=== PATIENT | female | born 1935 | race Caucasian/White ===

== ENCOUNTER 2023-05-04 05:11 | Inpatient (IN) | payer MEDICARE, OTHER ==
[~2023-05-04] VITALS: Ht 152.4 cm; Wt 63.2 kg
[2023-05-04 06:16] VITALS: BP 151/83; TEMP 98; O2SAT 98
[2023-05-04] MEDS ORDERED: TRANEXAMIC ACID 3,000 MG in SODIUM CHLORIDE IRRIG SOLUTION 70 ML IR ONE (06:30)
[2023-05-04] MEDS ORDERED: POLYMYXIN B SULFATE 500,000 UNITS ONE (06:33)
[2023-05-04] MEDS ORDERED: BUPIVACAINE 0.5 % PF 150 MG/30 ML VIAL ONE (06:33)
[2023-05-04] MEDS ORDERED: ROPIVACAINE HCL 0.5% 5 MG/ML 30ML VIAL ONE (06:35)
[2023-05-04] MEDS ORDERED: FENTANYL PF 100MCG/2ML AMPUL ONE (06:36)
[2023-05-04] MEDS ORDERED: HYDROMORPHONE INJ 2 MG/ML DISP.SYRIN ONE (06:36)
[2023-05-04] MEDS ORDERED: ROCURONIUM BROMIDE 50 MG/5 ML ONE (06:36)
[2023-05-04] MEDS ORDERED: CLINDAMYCIN IV RTU IN D5W 0 ML ONE (06:40)
[2023-05-04] MEDS ORDERED: CLINDAMYCIN 900 MG/6 ML VIAL ONE (06:50)
[2023-05-04] MEDS ORDERED: CLINDAMYCIN IV RTU IN D5W 50 ML ONE (06:50)
[2023-05-04] MEDS ORDERED: SENNOSIDES 8.6 MG TABLET PO PRN (09:30)
[2023-05-04] MEDS ORDERED: ONDANSETRON HCL/PF 4 MG/2 ML VIAL IV PRN (09:30)
[2023-05-04] MEDS ORDERED: BISACODYL SUPP (10 MG) 10 MG/SUPP.RECT SUPP.RECT RC PRN (09:30)
[2023-05-04] MEDS ORDERED: ACETAMINOPHEN 325 MG TABLET PO PRN (09:30)
[2023-05-04] MEDS ORDERED: IV D5/0.45 NACL 1,000 ML IV PRN (09:30)
[2023-05-04] MEDS ORDERED: ZOLPIDEM TARTRATE 5 MG TABLET PO PRN (09:30)
[2023-05-04] MEDS ORDERED: HYDROCODONE/APAP 5/325MG TABLET PO PRN (09:30)
[2023-05-04] MEDS ORDERED: CLONIDINE HCL 0.1 MG TABLET PO PRN (10:30)
[2023-05-04] MEDS ORDERED: MAG HYDROX/AL HYDROX/SIMETH 30 ML UDC PO PRN (10:30)
[2023-05-04] MEDS ORDERED: MENTHOL/CETYLPYRD (CEPACOL) 1 LOZ LOZENGE PO PRN (10:30)
[2023-05-04] MEDS ORDERED: HYDROMORPHONE 1 MG/1 ML DISP.SYRIN IM/IV/SC PRN (10:30)
[2023-05-04] MEDS ORDERED: diphenhydrAMINE HCL 25 MG CAPSULE PO PRN (10:30)
[2023-05-04] MEDS ORDERED: METO-357 PO (10:36)
[2023-05-04] MEDS ORDERED: EMPA25TA PO (10:36)
[2023-05-04] MEDS ORDERED: ALEN70TA80 PO (10:36)
[2023-05-04] MEDS ORDERED: POTA10CA43 PO (10:36)
[2023-05-04] MEDS ORDERED: AMLO-213 PO (10:36)
[2023-05-04] MEDS ORDERED: CYCL1DRO6 EACHEYE (10:36)
[2023-05-04] MEDS ORDERED: LOSA50TA39 PO (10:36)
[2023-05-04] MEDS ORDERED: AMIO200T5 PO (10:36)
[2023-05-04] MEDS ORDERED: OXYC1TAB12 PO (10:36)
[2023-05-04] MEDS ORDERED: APIX2.5T PO (10:36)
[2023-05-04] MEDS ORDERED: MYRBETRIQ PO (10:36)
[2023-05-04] MEDS ORDERED: ATOR10TA PO (10:36)
[2023-05-04] MEDS ORDERED: FURO-145 PO (10:36)
[2023-05-04] MEDS ORDERED: DEXTROSE 50%-WATER 50 ML DISP.SYRIN IV PRN (11:30)
[2023-05-04] MEDS: BLOOD SUGAR DIAGNOSTIC 1 EACH STRIP VI SCH ×3 (11:57→21:19)
[2023-05-04] MEDS: INSULIN REGULAR, HUMAN 100 UNIT/ML 3 ML VIAL SQ PRN ×2 (13:06→18:22)
[2023-05-04] MEDS: ANCEF 1 GM/50 ML D5W IV SCH ×4 (14:11→22:43)
[2023-05-04 16:00] VITALS: BP 144/72; TEMP 97.9; O2SAT 95
[2023-05-04] MEDS: DOCUSATE SODIUM 100 MG CAPSULE PO SCH (18:17)
[2023-05-04 20:00] VITALS: BP 140/64; TEMP 97.8; O2SAT 97
[2023-05-04] MEDS: FAMOTIDINE (20 MG) 20 MG TABLET PO SCH (21:18)
[2023-05-04] MEDS: *INSULIN REGULAR(HUMULIN R)HUM 100 UNIT/ML VIAL SQ PRN (21:58)
[2023-05-05] MEDS: HYDROCODONE/APAP 5/325MG TABLET PO PRN ×3 (01:12→18:24)
[2023-05-05] MEDS: BLOOD SUGAR DIAGNOSTIC 1 EACH STRIP VI SCH ×4 (06:31→21:46)
[2023-05-05] MEDS: INSULIN REGULAR, HUMAN 100 UNIT/ML 3 ML VIAL SQ PRN ×2 (06:33→13:02)
[2023-05-05 08:00] VITALS: BP 131/60; TEMP 97.9; O2SAT 93
[2023-05-05] MEDS: ASPIRIN 325 MG TABLET PO SCH (08:40)
[2023-05-05] MEDS: DOCUSATE SODIUM 100 MG CAPSULE PO SCH ×2 (08:40→17:31)
[2023-05-05] MEDS: FAMOTIDINE (20 MG) 20 MG TABLET PO SCH ×2 (08:40→20:36)
[2023-05-05] MEDS ORDERED: ASPIRIN 325 MG TABLET PO SCH (09:00)
[2023-05-05 09:23] LABS: HEMOGLOBIN 11.9 g/dL (11.5-14.8)
[2023-05-05] MEDS ORDERED: oxyCODONE/APAP (5/325 MG) 1 UDTAB TABLET PO PRN (12:30)
[2023-05-05] MEDS ORDERED: CYCLOSPORINE EACHEYE SCH (12:30)
[2023-05-05 13:02] LABS: CALCIUM, SERUM 8.5 mg/dL (8.5-10.1); CARBON DIOXIDE 27 mmol/L (21-32); CHLORIDE 97 mmol/L (98-107); CREATININE 0.8 mg/dL (0.6-1.3); GLUCOSE 262 mg/dL (74-106); POTASSIUM 3.1 mmol/L (3.5-5.1); SODIUM SERUM 132 mmol/L (136-145); UREA NITROGEN, BLOOD 12 mg/dL (7-18)
[2023-05-05 13:08] LABS: ALANINE AMINOTRANSFERASE 71 U/L (12-78); ALBUMIN 2.7 g/dL (3.4-5.0); ALKALINE PHOSPHATASE 62 U/L (46-116); ASPARTATE AMINOTRANSFERASE 53 U/L (15-37); BILIRUBIN,TOTAL 0.6 mg/dL (0.2-1.0); TOTAL PROTEIN, SERUM 5.7 g/dL (6.4-8.2)
[2023-05-05] MEDS: POTASSIUM CHLORIDE 20 MEQ TAB.PRT.SR PO SCH ×2 (13:58→15:27)
[2023-05-05 16:00] VITALS: BP 155/56; TEMP 98.1; O2SAT 93
[2023-05-05] MEDS: APIXABAN 2.5 MG TABLET PO SCH (17:00)
[2023-05-05 19:59] VITALS: BP 137/65; TEMP 100.2; O2SAT 94
[2023-05-05] MEDS: ATORVASTATIN 10 MG TABLET PO SCH (21:47)
[2023-05-05] MEDS: *INSULIN REGULAR(HUMULIN R)HUM 100 UNIT/ML VIAL SQ PRN (22:04)
[2023-05-06 05:55] LABS: BASOPHILS % (AUTO) 0.6 % (0.0-2.0); EOSINOPHILS # (AUTO) 0.1 K/uL (0.0-0.7); EOSINOPHILS % (AUTO) 1.3 % (0.0-6.0); HEMATOCRIT 35 % (33-45); HEMOGLOBIN 11.6 g/dL (11.5-14.8); LYMPHOCYTES # (AUTO) 1.2 K/uL (0.8-4.8); LYMPHOCYTES % (AUTO) 17.9 % (20.0-44.0); MEAN CORPUSCULAR HEMOGLOBIN 28 PG (26.0-33.0); MEAN CORPUSCULAR HGB CONC 33 g/dl (31.0-36.0); MEAN CORPUSCULAR VOLUME 85 fL (82-100); MONOCYTES # (AUTO) 0.6 K/uL (0.1-1.30); MONOCYTES % (AUTO) 9.2 % (2.0-12.0); NEUTROPHILS # (AUTO) 4.8 K/uL (1.8-8.9); PLATELET COUNT (AUTO) 226 K/uL (150-450); RED BLOOD CELL COUNT(AUTO) 4.07 MIL/uL (4.0-5.2); RED CELL DISTRIBUTION WIDTH 17.2 % (11.5-15.0); WHITE BLOOD COUNT (AUTO) 6.7 K/uL (4.3-11.0)
[2023-05-06] MEDS: INSULIN REGULAR, HUMAN 100 UNIT/ML 3 ML VIAL SQ PRN (06:17)
[2023-05-06] MEDS: BLOOD SUGAR DIAGNOSTIC 1 EACH STRIP VI SCH ×4 (06:17→21:38)
[2023-05-06 06:40] LABS: CALCIUM, SERUM 9.2 mg/dL (8.5-10.1); CARBON DIOXIDE 28 mmol/L (21-32); CHLORIDE 97 mmol/L (98-107); CREATININE 0.6 mg/dL (0.6-1.3); GLUCOSE 146 mg/dL (74-106); MAGNESIUM 1.7 mg/dL (1.8-2.4); PHOSPHORUS 3.2 mg/dL (2.5-4.9); POTASSIUM 3.3 mmol/L (3.5-5.1); SODIUM SERUM 133 mmol/L (136-145); UREA NITROGEN, BLOOD 10 mg/dL (7-18)
[2023-05-06 08:00] VITALS: BP 145/76; TEMP 98.6; O2SAT 94
[2023-05-06] MEDS: FAMOTIDINE (20 MG) 20 MG TABLET PO SCH ×2 (08:32→21:01)
[2023-05-06] MEDS: POTASSIUM CHLORIDE 10 MEQ TABLET.SA PO SCH (08:32)
[2023-05-06] MEDS: FUROSEMIDE 20 MG TABLET PO SCH (08:32)
[2023-05-06] MEDS: METOPROLOL SUCCINATE 50 MG TAB.SR.24H PO SCH (08:32)
[2023-05-06] MEDS: DOCUSATE SODIUM 100 MG CAPSULE PO SCH ×2 (08:32→17:13)
[2023-05-06] MEDS: ASPIRIN 325 MG TABLET PO SCH (08:33)
[2023-05-06] MEDS: AMIODARONE HCL 200 MG TABLET PO SCH (08:33)
[2023-05-06] MEDS: LOSARTAN POTASSIUM 50 MG TABLET PO SCH (08:35)
[2023-05-06] MEDS: AMLODIPINE BESYLATE 10 MG TABLET PO SCH (08:36)
[2023-05-06] MEDS ORDERED: Medication Not On Formulary EA ([Myrbetriq] 25 MG) PO SCH (09:00)
[2023-05-06] MEDS: EMPAGLIFLOZIN 25 MG TABLET PO SCH (09:20)
[2023-05-06] MEDS: APIXABAN 2.5 MG TABLET PO SCH ×2 (09:31→17:16)
[2023-05-06] MEDS ORDERED: MAGNESIUM OXIDE 400 MG TABLET PO ONE (10:00)
[2023-05-06 16:00] VITALS: BP 154/75; TEMP 97.9; O2SAT 94
[2023-05-06] MEDS: KETOROLAC TROMETHAMINE INJ 30 MG/ML VIAL IM PRN (17:18)
[2023-05-06] MEDS: ATORVASTATIN 10 MG TABLET PO SCH (21:01)
[2023-05-07 06:04] LABS: BASOPHILS % (AUTO) 0.3 % (0.0-2.0); EOSINOPHILS # (AUTO) 0.1 K/uL (0.0-0.7); EOSINOPHILS % (AUTO) 0.7 % (0.0-6.0); HEMATOCRIT 32 % (33-45); LYMPHOCYTES # (AUTO) 1.4 K/uL (0.8-4.8); MEAN CORPUSCULAR HEMOGLOBIN 29 PG (26.0-33.0); MEAN CORPUSCULAR HGB CONC 34 g/dl (31.0-36.0); MEAN CORPUSCULAR VOLUME 85 fL (82-100); MONOCYTES # (AUTO) 0.7 K/uL (0.1-1.30); MONOCYTES % (AUTO) 9.6 % (2.0-12.0); NEUTROPHILS # (AUTO) 5.5 K/uL (1.8-8.9); NEUTROPHILS % (AUTO) 71.4 % (43.0-81.0); PLATELET COUNT (AUTO) 219 K/uL (150-450); RED BLOOD CELL COUNT(AUTO) 3.76 MIL/uL (4.0-5.2); WHITE BLOOD COUNT (AUTO) 7.6 K/uL (4.3-11.0)
[2023-05-07 06:42] LABS: CALCIUM, SERUM 8.9 mg/dL (8.5-10.1); CREATININE 0.9 mg/dL (0.6-1.3); POTASSIUM 3.3 mmol/L (3.5-5.1)
[2023-05-07] MEDS: BLOOD SUGAR DIAGNOSTIC 1 EACH STRIP VI SCH ×2 (06:59→12:10)
[2023-05-07 08:00] VITALS: BP 139/58; TEMP 98.4; O2SAT 93
[2023-05-07] MEDS: FAMOTIDINE (20 MG) 20 MG TABLET PO SCH (08:28)
[2023-05-07] MEDS: AMLODIPINE BESYLATE 10 MG TABLET PO SCH (08:28)
[2023-05-07] MEDS: FUROSEMIDE 20 MG TABLET PO SCH (08:29)
[2023-05-07] MEDS: DOCUSATE SODIUM 100 MG CAPSULE PO SCH (08:29)
[2023-05-07] MEDS: AMIODARONE HCL 200 MG TABLET PO SCH (08:29)
[2023-05-07] MEDS: LOSARTAN POTASSIUM 50 MG TABLET PO SCH (08:29)
[2023-05-07] MEDS: POTASSIUM CHLORIDE 10 MEQ TABLET.SA PO SCH (08:29)
[2023-05-07 08:30] VITALS: BP 116/81
[2023-05-07] MEDS: METOPROLOL SUCCINATE 50 MG TAB.SR.24H PO SCH (08:30)
[2023-05-07] MEDS: EMPAGLIFLOZIN 25 MG TABLET PO SCH (08:37)
[2023-05-07] MEDS: APIXABAN 2.5 MG TABLET PO SCH (08:39)
[2023-05-07] MEDS ORDERED: ASPIRIN 325 MG TABLET PO SCH (09:00)
[2023-05-07] MEDS: KETOROLAC TROMETHAMINE INJ 30 MG/ML VIAL IM PRN (09:27)
[2023-05-10] MEDS ORDERED: ALENDRONATE 70 MG TABLET PO SCH (06:30)
== END 2023-05-07 15:15 | DRG 470 ==
LOC: DS 05:11 → MED 05:12
PROVIDERS: ADMIT Nurse Practitioner Acute Care; ATTEND Internal Medicine
PROC: 0SRC0J9 Replacement of Right Knee Joint with Synthetic Substitute, Cemented, Open Approach (ICD-10-PCS; principal; 2023-05-04)
DX: M17.11 Unilateral primary osteoarthritis, right knee (principal); I48.20 Chronic atrial fibrillation, unspecified; E11.9 Type 2 diabetes mellitus without complications; I25.10 Atherosclerotic heart disease of native coronary artery without angina pectoris; I10 Essential (primary) hypertension; Z86.73 Personal history of transient ischemic attack (TIA), and cerebral infarction without residual deficits; Z79.01 Long term (current) use of anticoagulants; Z88.0 Allergy status to penicillin; E78.5 Hyperlipidemia, unspecified; M81.0 Age-related osteoporosis without current pathological fracture; Z95.0 Presence of cardiac pacemaker; Z95.5 Presence of coronary angioplasty implant and graft
CPT/HCPCS: 36415; 80048-TC; 80053-TC; 82962-TC; 83735-TC; 84100-TC; 85025-TC; 85027-TC; 87081-TC; 97110-TC; 97112-TC; 97116-TC; 97530-TC; 97760-TC; A4217; A4223; A6253; A6403; C1713; C1776; G0378; J0690; J1100; J1170; J1815; J1885; J2405; J2704; J2765; J2795; J3010; J3490; J7030; J7050; J7060; L1830

== ENCOUNTER 2024-03-17 05:06 | Inpatient (IN) | payer MEDICARE, OTHER ==
[2024-03-17] VITALS (7 sets, daily range): BP systolic 120–144; BP diastolic 64–75; TEMP 97.4–97.9; O2SAT 96–99
[~2024-03-17] VITALS: Ht 152.4 cm; Wt 74.0 kg
[~2024-03-17 05:06] MED LIST: ALEN70TA80 PO; AMIO200T5 PO; AMLO-213 PO; APIX2.5T PO; ATOR10TA PO; CYCL1DRO6 EACHEYE; EMPA25TA PO; FURO-145 PO; LOSA50TA39 PO; METO-357 PO; MYRBETRIQ PO; OXYC1TAB12 PO; POTA10CA43 PO
[2024-03-17] MEDS ORDERED: POLYMYXIN B SULFATE 500,000 UNITS ONE (05:50)
[2024-03-17] MEDS ORDERED: BUPIVACAINE 0.5 % PF 150 MG/30 ML VIAL ONE ×2 (05:50→07:55)
[2024-03-17] MEDS ORDERED: FENTANYL PF 100MCG/2ML AMPUL ONE (06:19)
[2024-03-17] MEDS ORDERED: HYDROMORPHONE INJ 2 MG/ML DISP.SYRIN ONE (06:19)
[2024-03-17] MEDS ORDERED: VASOPRESSIN INJ 20 UNIT/ML VIAL ONE (06:19)
[2024-03-17] MEDS ORDERED: TRANEXAMIC ACID 1,000 MG/10 ML VIAL ONE (06:27)
[2024-03-17] MEDS ORDERED: CLINDAMYCIN IV RTU IN D5W 50 ML ONE (06:27)
[2024-03-17] MEDS ORDERED: TRANEXAMIC ACID 3,000 MG in SODIUM CHLORIDE IRRIG SOLUTION 70 ML IR ONE (07:00)
[2024-03-17] MEDS ORDERED: BUPIVACAINE 0.25% 75 MG/30 ML VIAL ONE (07:55)
[2024-03-17] MEDS ORDERED: ONDANSETRON HCL/PF 4 MG/2 ML VIAL ONE (09:03)
[2024-03-17] MEDS ORDERED: ONDANSETRON HCL/PF 4 MG/2 ML VIAL IV PRN (12:00)
[2024-03-17] MEDS ORDERED: ZOLPIDEM TARTRATE 5 MG TABLET PO PRN (12:00)
[2024-03-17] MEDS ORDERED: BISACODYL SUPP (10 MG) 10 MG/SUPP.RECT SUPP.RECT RC PRN (12:00)
[2024-03-17] MEDS ORDERED: DOCUSATE SODIUM 250 MG CAPSULE PO PRN (12:00)
[2024-03-17] MEDS ORDERED: SENNOSIDES 8.6 MG TABLET PO PRN (12:00)
[2024-03-17] MEDS: IV D5/0.45 NACL 1,000 ML IV PRN (12:08)
[2024-03-17] MEDS ORDERED: ONDANSETRON HCL/PF 4 MG/2 ML VIAL IVP PRN (12:30)
[2024-03-17] MEDS ORDERED: ACETAMINOPHEN 325 MG TABLET PO PRN (12:30)
[2024-03-17] MEDS ORDERED: MORPHINE SULFATE INJ 2 MG/ML DISP.SYRIN IV PRN ×2 (12:30→13:00)
[2024-03-17] MEDS: CLINDAMYCIN 600 MG in IV NS 0.9% 46 ML IV SCH (13:00)
[2024-03-17 15:22] LABS: CALCIUM, SERUM 8.8 mg/dL (8.5-10.1); CARBON DIOXIDE 26 mmol/L (21-32); CHLORIDE 99 mmol/L (98-107); CREATININE 1.1 mg/dL (0.6-1.3); GLUCOSE 283 mg/dL (74-106); POTASSIUM 3.9 mmol/L (3.5-5.1); SODIUM SERUM 137 mmol/L (136-145); UREA NITROGEN, BLOOD 20 mg/dL (7-18)
[2024-03-17] MEDS ORDERED: MENTHOL/CETYLPYRD (CEPACOL) 1 LOZ LOZENGE PO PRN (20:00)
[2024-03-17] MEDS ORDERED: MORPHINE SULFATE INJ 2 MG/ML DISP.SYRIN IM/IV PRN (20:00)
[2024-03-17] MEDS ORDERED: oxyCODONE IR immediate release 5 MG TABLET PO PRN (20:00)
[2024-03-17] MEDS ORDERED: diphenhydrAMINE HCL 25 MG CAPSULE PO PRN (20:00)
[2024-03-17] MEDS ORDERED: MAG HYDROX/AL HYDROX/SIMETH 30 ML UDC PO PRN (20:00)
[2024-03-17] MEDS ORDERED: MAGNESIUM HYDROXIDE 30 ML UDC PO PRN (20:00)
[2024-03-17] MEDS ORDERED: APIXABAN 2.5 MG TABLET PO SCH (21:00)
[2024-03-17] MEDS: ATORVASTATIN 10 MG TABLET PO SCH (22:26)
[2024-03-18 06:37] LABS: HEMATOCRIT 39 % (33-45); HEMOGLOBIN 12.9 g/dL (11.5-14.8); LYMPHOCYTES # (AUTO) 0.8 K/uL (0.8-4.8); LYMPHOCYTES % (AUTO) 9.7 % (20.0-44.0); MEAN CORPUSCULAR HEMOGLOBIN 29 PG (26.0-33.0); MEAN CORPUSCULAR HGB CONC 33 g/dl (31.0-36.0); MEAN CORPUSCULAR VOLUME 88 fL (82-100); MONOCYTES # (AUTO) 0.5 K/uL (0.1-1.30); MONOCYTES % (AUTO) 6.4 % (2.0-12.0); NEUTROPHILS # (AUTO) 6.9 K/uL (1.8-8.9); NEUTROPHILS % (AUTO) 83.9 % (43.0-81.0); PLATELET COUNT (AUTO) 238 K/uL (150-450); RED BLOOD CELL COUNT(AUTO) 4.38 MIL/uL (4.0-5.2); RED CELL DISTRIBUTION WIDTH 15.7 % (11.5-15.0); WHITE BLOOD COUNT (AUTO) 8.2 K/uL (4.3-11.0)
[2024-03-18 06:43] LABS: ALANINE AMINOTRANSFERASE 29 U/L (12-78); ALBUMIN 3.1 g/dL (3.4-5.0); ALKALINE PHOSPHATASE 46 U/L (46-116); ASPARTATE AMINOTRANSFERASE 19 U/L (15-37); BILIRUBIN,TOTAL 0.7 mg/dL (0.2-1.0); CARBON DIOXIDE 26 mmol/L (21-32); CHLORIDE 98 mmol/L (98-107); CREATININE 0.8 mg/dL (0.6-1.3); GLUCOSE 197 mg/dL (74-106); MAGNESIUM 1.7 mg/dL (1.8-2.4); POTASSIUM 2.9 mmol/L (3.5-5.1); SODIUM SERUM 135 mmol/L (136-145); UREA NITROGEN, BLOOD 12 mg/dL (7-18)
[2024-03-18] MEDS: APIXABAN 2.5 MG TABLET PO SCH (08:27)
[2024-03-18 08:28] VITALS: BP 157/98; TEMP 98.1; O2SAT 95
[2024-03-18] MEDS ORDERED: DEXTROSE 50%-WATER 50 ML DISP.SYRIN IV PRN (08:30)
[2024-03-18] MEDS: LOSARTAN POTASSIUM 50 MG TABLET PO SCH (08:38)
[2024-03-18] MEDS: AMLODIPINE BESYLATE 10 MG TABLET PO SCH (08:38)
[2024-03-18] MEDS: METOPROLOL SUCCINATE 50 MG TAB.SR.24H PO SCH (08:38)
[2024-03-18] MEDS: FUROSEMIDE 20 MG TABLET PO SCH (08:38)
[2024-03-18] MEDS: AMIODARONE HCL 200 MG TABLET PO SCH (08:38)
[2024-03-18] MEDS: BLOOD SUGAR DIAGNOSTIC 1 EACH STRIP IN SCH (08:39)
[2024-03-18] MEDS: POTASSIUM CHLORIDE 20 MEQ TAB.PRT.SR PO SCH (08:42)
[2024-03-18] MEDS ORDERED: Medication Not On Formulary EA ([Myrbetriq] 25 MG) PO SCH (09:00)
[2024-03-18] MEDS ORDERED: ASPIRIN 325 MG TABLET PO SCH (09:00)
[2024-03-18] MEDS: MAGNESIUM OXIDE 400 MG TABLET PO ONE (10:38)
[2024-03-18] MEDS: EMPAGLIFLOZIN 25 MG TABLET PO SCH (10:38)
[2024-03-18] MEDS: INSULIN REGULAR, HUMAN 100 UNIT/ML 3 ML VIAL SQ PRN (11:51)
[2024-03-18 16:05] VITALS: BP 164/75; TEMP 98.5; O2SAT 94
[2024-03-18 17:00] VITALS: BP 145/80
[2024-03-18] MEDS ORDERED: LORAZEPAM INJ 2 MG/ML VIAL IM ONE (21:30)
[2024-03-19 08:00] VITALS: BP 150/78; TEMP 98.1; O2SAT 97
[2024-03-19 08:06] LABS: CALCIUM, SERUM 9.1 mg/dL (8.5-10.1); CARBON DIOXIDE 27 mmol/L (21-32); CHLORIDE 97 mmol/L (98-107); CREATININE 0.8 mg/dL (0.6-1.3); GLUCOSE 124 mg/dL (74-106); POTASSIUM 2.9 mmol/L (3.5-5.1); SODIUM SERUM 135 mmol/L (136-145); UREA NITROGEN, BLOOD 11 mg/dL (7-18)
[2024-03-19] MEDS: POTASSIUM CHLORIDE 20 MEQ TAB.PRT.SR PO SCH (09:42)
[2024-03-19 16:00] VITALS: BP 144/70; TEMP 98.2; O2SAT 92
[2024-03-19 20:00] VITALS: BP 142/77; TEMP 98.2; O2SAT 89
[2024-03-20 08:00] VITALS: BP 134/74; TEMP 98.4; O2SAT 99
[2024-03-20 08:32] VITALS: BP 134/74
[2024-03-20] MEDS ORDERED: OXYC5CAP18 PO (09:44)
== END 2024-03-20 15:00 | DRG 470 ==
LOC: DS 05:06 → MED 10:14
PROVIDERS: ADMIT Internal Medicine; ATTEND Internal Medicine
PROC: 0SRD0J9 Replacement of Left Knee Joint with Synthetic Substitute, Cemented, Open Approach (ICD-10-PCS; principal; 2024-03-17)
DX: M17.12 Unilateral primary osteoarthritis, left knee (principal); I48.91 Unspecified atrial fibrillation; I25.10 Atherosclerotic heart disease of native coronary artery without angina pectoris; N32.81 Overactive bladder; E78.5 Hyperlipidemia, unspecified; Z79.01 Long term (current) use of anticoagulants; I10 Essential (primary) hypertension; E11.9 Type 2 diabetes mellitus without complications; Z79.83 Long term (current) use of bisphosphonates; Z79.899 Other long term (current) drug therapy; Z88.0 Allergy status to penicillin; Z88.5 Allergy status to narcotic agent; Z91.040 Latex allergy status; Z88.6 Allergy status to analgesic agent; Z88.8 Allergy status to other drugs, medicaments and biological substances
CPT/HCPCS: 36415; 71045-TC; 80048-TC; 80053-TC; 82962-TC; 83735-TC; 84100-TC; 85025-TC; 87081-TC; 94799-TC; 97110-TC; 97112-TC; 97530-TC; 97760-TC; A4217; A4223; C1713; C1776; G0378; J1100; J1170; J1815; J2405; J2704; J2765; J3010; J3490; J7030; J7050; L1830